=== PATIENT | male | born 1955 | race Caucasian/White ===

== ENCOUNTER → 2020-08-02 12:37 | Outpatient (CLI) | payer MEDICARE, OTHER, SELFPAY ==
[2020-08-02 13:25] LABS: Add Manual Diff / Slide Review NO; Basophils Absolute Auto 0 /uL (0-100); Basophils Percent Auto 0.3 % (0-2); Eosinophils Absolute Auto 200 /uL (0-450); Hemoglobin 14.8 g/dL (13.5-17.5); Lymphocytes Absolute Auto 2300 /uL (1100-4500); Lymphocytes Percent Auto 23.4 % (25-40); Mean Corpuscular HGB Conc 34.5 % (30-36); Mean Corpuscular Volume 89.9 fL (80-100); Monocytes Absolute Auto 800 /uL (0-900); Monocytes Percent Auto 7.9 % (3-14); Neutrophils Absolute Auto 6400 /uL (1500-7000); Neutrophils Percent Auto 66.4 % (50-75); Platelet Count 300 X10^3/uL (150-400); Red Blood Cell Count 4.78 X10^6/uL (4.5-5.9); Red Cell Distribution Width 13.6 % (11.6-14.8); White Blood Cell Count 9.6 X10^3/uL (4.5-11.0)
[2020-08-02 13:55] LABS: Alanine Aminotransferase 28 IU/L (<50); Albumin 4.4 g/dL (3.5-5.0); Albumin Globulin Ratio 1.3 (1.0-2.8); Alkaline Phosphatase 74 U/L (38-126); Aspartate Aminotransferase 29 IU/L (17-59); BUN Creatinine Ratio 19.1 (6-22); Bilirubin Total 0.5 mg/dL (0.2-1.3); Blood Urea Nitrogen 17 mg/dL (9-20); Calcium 9.4 mg/dL (8.4-10.2); Carbon Dioxide 28 mmol/L (22-32); Chloride 106 mmol/L (98-107); Estimated Glomerular Filt Rate > 60.0 mL/min (>60); Globulin 3.3 g/dL (1.7-4.1); Glucose 94 mg/dL (80-110); HEMOLYSIS < 15 (0-50); Potassium 4.5 mmol/L (3.4-5.1); Sodium 139 mmol/L (137-145); Total Protein 7.7 g/dL (6.3-8.2)
[2020-08-02 14:19] LABS: Prostate Specific Antigen Scrn 2.06 ng/mL (0.1-4.0)
== END ==
PROVIDERS: PCP Internal Medicine; Referring Provider Internal Medicine; Visit Provider Internal Medicine
DX: Z13.1 Encounter for screening for diabetes mellitus (principal); Z13.6 Encounter for screening for cardiovascular disorders; Z13.220 Encounter for screening for lipoid disorders; Z12.5 Encounter for screening for malignant neoplasm of prostate
CPT/HCPCS: 36415; 80053; 85025; G0103

== ENCOUNTER → 2021-05-30 09:33 | Outpatient (CLI) | payer MEDICARE, BC, SELFPAY ==
[2021-05-30 11:12] LABS: Add Manual Diff / Slide Review NO; Basophils Absolute Auto 0 /uL (0-100); Basophils Percent Auto 0.5 % (0-2); Eosinophils Absolute Auto 200 /uL (0-450); Eosinophils Percent Auto 2.2 % (2-4); Hematocrit 47.2 % (41-53); Hemoglobin 15.8 g/dL (13.5-17.5); Lymphocytes Absolute Auto 2200 /uL (1100-4500); Lymphocytes Percent Auto 21.4 % (25-40); Mean Corpuscular HGB Conc 33.4 % (30-36); Mean Corpuscular Hemoglobin 30.4 PG (26-34); Mean Corpuscular Volume 90.9 fL (80-100); Monocytes Absolute Auto 800 /uL (0-900); Monocytes Percent Auto 7.4 % (3-14); Neutrophils Absolute Auto 6900 /uL (1500-7000); Neutrophils Percent Auto 68.5 % (50-75); Platelet Count 278 X10^3/uL (150-400); Red Blood Cell Count 5.19 X10^6/uL (4.5-5.9); Red Cell Distribution Width 13.7 % (11.6-14.8); White Blood Cell Count 10.1 X10^3/uL (4.5-11.0)
[2021-05-30 11:28] LABS: Erythrocyte Sedimentation Rate 7 MM/HR (0-15)
[2021-05-30 12:59] LABS: Alanine Aminotransferase 26 IU/L (<50); Albumin 4.6 g/dL (3.5-5.0); Albumin Globulin Ratio 1.4 (1.0-2.8); Alkaline Phosphatase 71 U/L (38-126); Aspartate Aminotransferase 26 IU/L (17-59); BUN Creatinine Ratio 19.2 (6-22); Bilirubin Total 0.5 mg/dL (0.2-1.3); Blood Urea Nitrogen 20 mg/dL (9-20); C-Reactive Protein Quant 0.9 mg/dL (<1.0); Calcium 9.3 mg/dL (8.4-10.2); Carbon Dioxide 26 mmol/L (22-32); Chloride 107 mmol/L (98-107); Creatine Kinase 94 U/L (55-170); Estimated Glomerular Filt Rate > 60.0 mL/min (>60); Globulin 3.2 g/dL (1.7-4.1); Glucose 100 mg/dL (80-110); HEMOLYSIS < 15 (0-50); Potassium 4.4 mmol/L (3.4-5.1); Sodium 140 mmol/L (137-145); Total Protein 7.8 g/dL (6.3-8.2); Uric Acid 8.2 mg/dL (3.5-8.5)
[2021-05-30 13:10] LABS: TSH w/ Reflex to FT4 2.81 uIU/mL (0.47-4.68)
== END ==
PROVIDERS: PCP Internal Medicine; Referring Provider Internal Medicine; Visit Provider Internal Medicine
DX: I10 Essential (primary) hypertension (principal); M79.10 Myalgia, unspecified site; M10.9 Gout, unspecified
CPT/HCPCS: 36415; 80053; 82550; 84443; 84550; 85025; 85651; 86140

== ENCOUNTER → 2023-04-16 09:36 | Outpatient (CLI) | payer MEDICARE, BC, SELFPAY ==
[2023-04-16 11:31] LABS: Alanine Aminotransferase 25 IU/L (<50); Albumin 4.3 g/dL (3.5-5.0); Albumin Globulin Ratio 1.4 (1.0-2.8); Alkaline Phosphatase 64 U/L (38-126); Aspartate Aminotransferase 27 IU/L (17-59); BUN Creatinine Ratio 21.1 (6-22); Bilirubin Total 0.7 mg/dL (0.2-1.3); Blood Urea Nitrogen 19 mg/dL (9-20); Carbon Dioxide 25 mmol/L (22-32); Chloride 104 mmol/L (98-107); Cholesterol 249 mg/dL (140-199); Estimated Glomerular Filt Rate > 60 mL/min (>60); Globulin 3.1 g/dL (1.7-4.1); Glucose 99 mg/dL (80-110); HDL Cholesterol 36 mg/dL (40-60); HEMOLYSIS 17 (0-50); LDL Cholesterol Calculated 154 mg/dL (<100); Potassium 4.3 mmol/L (3.4-5.1); Sodium 136 mmol/L (137-145); Total Protein 7.4 g/dL (6.3-8.2); Triglycerides 295 mg/dL (35-150); Uric Acid 8.4 mg/dL (3.5-8.5)
[2023-04-16 11:57] LABS: Prostate Specific Antigen Scrn 3.22 ng/mL (0.1-4.0)
== END ==
PROVIDERS: PCP Internal Medicine; Referring Provider Internal Medicine; Visit Provider Internal Medicine
DX: I10 Essential (primary) hypertension (principal); Z12.5 Encounter for screening for malignant neoplasm of prostate; M10.9 Gout, unspecified
CPT/HCPCS: 36415; 80053; 80061; 84550; G0103

== ENCOUNTER → 2023-04-20 08:53 | Outpatient (CLI) | payer MEDICARE, BC, SELFPAY ==
--- NOTE | 2023-04-20 08:55 | DI.RAD.S_ITS ---
PROCEDURE: FL BARIUM SWALLOW INDICATIONS: dysphagia COMPARISON: None. FINDINGS: Function: There is mild esophageal dysmotility. No elicited gastroesophageal reflux. There is obstruction a calibrated barium tablet at the gastroesophageal junction. Morphology: Air-contrast images demonstrate normal mucosal morphology. There is short segment narrowing of the distal esophagus at esophageal strictures consistent with stricture. No extrinsic mass effects or diverticula. Small sliding hiatal hernia. Limited images of the stomach demonstrate normal appearance. IMPRESSION: 1. Short segment narrowing of the distal esophagus causing obstruction of the calibrated barium catheterization tablet. Recommend EGD for further evaluation. 2. Mild esophageal dysmotility. 3. Small sliding hiatal hernia. Dictated by: Suzie Gross M.D. on 04/20/2023 at 17:13 Approved by: Suzie Gross M.D. on 04/20/2023 at 20:39
== END ==
PROVIDERS: PCP Internal Medicine; Referring Provider Internal Medicine; Visit Provider Internal Medicine
DX: R13.10 Dysphagia, unspecified (principal); K22.4 Dyskinesia of esophagus; K44.9 Diaphragmatic hernia without obstruction or gangrene
CPT/HCPCS: 74220

== ENCOUNTER → 2023-05-28 15:05 | Outpatient (CLI) | payer MEDICARE, BC, SELFPAY ==
--- NOTE | 2023-05-28 15:08 | DI.RAD.S_ITS ---
PROCEDURE: XR WRIST LT MIN 3V INDICATIONS: distal ulna pain/tender/swelling reduce ROM wrist TECHNIQUE: 4 views of the wrist were acquired. COMPARISON: None. FINDINGS: Bones: No fractures or dislocations. No suspicious bony lesions. Osteoarthritic changes of the trace kv and 1st carpometacarpal joints. Scaphoid view: No acute fracture. Soft tissues: No suspicious soft tissue calcifications. IMPRESSION: No acute fractures or dislocations. Dictated by: Jaciel Suarez M.D. on 05/28/2023 at 15:50 Approved by: Jaciel Suarez M.D. on 05/28/2023 at 15:50
== END ==
PROVIDERS: PCP Internal Medicine; Referring Provider Student in an Organized Health Care Education/Training Program; Visit Provider Student in an Organized Health Care Education/Training Program
DX: S63.502A Unspecified sprain of left wrist, initial encounter (principal); X58.XXXA Exposure to other specified factors, initial encounter
CPT/HCPCS: 73110

== ENCOUNTER 2023-07-03 13:02 | Day surgery (SDC) | payer MEDICARE, OTHER, SELFPAY ==
[2023-07-03 13:27] VITALS: BP 152/93; PULSE 84; RESP 16; TEMP 36.5; O2SAT 98; BMI 27.3
[2023-07-03] MEDS: LACTATED RINGERS 1,000 ML 150 ML IV (13:40)
--- NOTE | 2023-07-03 13:59 | P.HP_ITS ---
History of Present Illness History of Present Illness Date Patient Seen: 07/03/23 Time Patient Seen: 13:59 Chief complaint: EGD/Colonoscopy Narrative: 68-year-old man with esophageal dysphagia here for diagnostic EGD and screening colonoscopy. No interval change in health. Please refer to the H and P from May 2023 for further detail. [facility] Medical History GERD without esophagitis Gout Erectile dysfunction Essential hypertension (~08/31/20) H/O adenomatous polyp of colon (~06/2018) Family history of Parkinson's disease Achilles tendinitis (~1997) Chronic back pain (~2019) MRSA (methicillin resistant Staphylococcus aureus) (~2012) Family history of colorectal cancer H/O renal calculi (~2014) Surgical History Anesthesia History of lithotripsy (~2015) S/P medial meniscal repair (~2012) History of eye surgery (~1958) S/P hernia surgery (~2012) S/P Achilles tendon repair S/P tonsillectomy and adenoidectomy Family History Mother Colon cancer Bedridden Father Parkinson's disease Stroke Grandfather Cancer Grandmother Diabetes mellitus Grandmother Cancer Social History household members: spouse Smoking Status: Former smoker alcohol intake: current Meds Home Medications and Allergies Home Medications Medication Instructions Recorded Confirmed Type omeprazole 40 mg capsule,delayed 40 mg PO BID #180 caps 05/18/23 07/03/23 Rx release rosuvastatin 10 mg tablet 10 mg PO DAILY #90 tabs 05/18/23 07/03/23 Rx peg 3350-electrolytes 236 240 ml PO Q10M #4,000 mL 06/07/23 07/03/23 Rx gram-22.74 gram-6.74 gram-5.86 gram solution (Golytely) Allergies Allergy/AdvReac Type Severity Reaction Status Date / Time No Known Drug Allergies Allergy Verified 05/31/23 09:32 Exam Vital Signs (past 8 hours): - 07/03/23 13:27 Temperature 97.7 F Pulse Rate 84 Respiratory Rate 16 Blood Pressure 152/93 H Pulse Oximetry 98 Oxygen Delivery Method Room Air Oxygen Delivery Method Room Air Narrative Exam Narrative: General adult man alert oriented no acute distress Chest nonlabored respiration Extremities warm well perfused Assessment & Plan Assessment and plan (1) Stricture of esophagus: Status: Acute Assessment & Plan narrative: 68-year-old man with esophageal dysphagia secondary to stricture here for diagnostic esophagoduodenoscopy and screening colonoscopy. Technical details were discussed. Risks, benefits, alternatives explained. Risks including but not limited to myocardial infarction, aspiration, bleeding, pain, missed lesion, incomplete examination, need for further radiographic studies, intestinal injury, and need for major abdominal surgery were discussed. All questions were answered to their satisfaction, and they are in agreement with this plan.
[2023-07-03 14:35] VITALS: BP 96/62; PULSE 67; RESP 14; TEMP 36.4; O2SAT 97
--- NOTE | 2023-07-03 14:35 | PM.OP.EC ---
Operative Date/Time/Diagnoses Date of procedure: 07/03/23 Time of procedure: 14:35 Pre-op diagnosis: Esophageal stricture, family history of colon cancer Post-op diagnosis: same Procedure & Clinicians Study performed: Esophagoduodenoscopy with dilation Screening colonoscopy Same procedure as scheduled: Yes Indications: 68-year-old man with esophageal dysphagia and esophageal stricture here for diagnostic esophagoduodenoscopy and colonoscopy Surgeon: Devin Mckeon Procedure Notes Procedure in detail: The history and physical was performed/updated and the patient is ASA class is 2. The procedure was discussed in detail with the patient. Potential risks complications including infection, bleeding, missed diagnosis, perforation, need for surgery, and were explained. Their questions were answered and informed consent was obtained. Patient placed in left lateral decubitus position. Time out was performed. Procedural sedation was administered by Anesthesia. A bite block was placed. the scope was inserted into the mouth and advanced through the esophagus and into the stomach. There was a ring of scar tissue at the distal esophagus but the scope could pass through this. The stomach was without masses, ulcers or gastritis. The pylorus was intubated and the duodenum was normal to the 2nd portion. The scope was retroflexed within the stomach and there was a small hiatal hernia. The scope was withdrawn into the esophagus the Z line was seen at 35 cm from the incisions. The distal esophageal stricture was slowly and under direct visualization dilated to 20 mm. Stomach was desufflated and scope removed. Examination began with a thorough inspection of the perianal area there was no evidence of fissures, fistulae, external hemorrhoids or cutaneous malignancy. The colonoscopy scope was then placed into the anal canal and was advanced to the cecum, which was identified by the ileocecal valve, the appendiceal orifice and the confluence of the taenia. The scope was then slowly withdrawn examining colon thoroughly in all directions, irrigating it of any residual stool. The patient tolerated the procedure well. They will be discharged once criteria are met. The prep was of good/excellent quality. The withdrawl time was 7 minutes. Findings -Distal esophageal stricture -sigmoid diverticulosis Specimen(s): none sent Impression: Esophageal stricture Post-procedure Plan for aftercare: Repeat colonoscopy 5 years secondary to family history Disposition: same day surgery
[2023-07-03 14:40] VITALS: BP 98/64; PULSE 68; RESP 14; O2SAT 96
[2023-07-03 14:45] VITALS: BP 107/68; PULSE 60; RESP 12; TEMP 36.3; O2SAT 98
[2023-07-03 14:53] VITALS: BP 109/72; PULSE 80; RESP 18; O2SAT 97
== END 2023-07-03 15:10 | disposition home or self-care (01) ==
PROVIDERS: PCP Internal Medicine; Referring Provider Surgery; Visit Provider Surgery
PROC: 0DJ08ZZ Inspection of Upper Intestinal Tract, Via Natural or Artificial Opening Endoscopic (ICD-10-PCS; CPT 43235; principal; 2023-07-03 14:30)
PROC: 0DJD8ZZ Inspection of Lower Intestinal Tract, Via Natural or Artificial Opening Endoscopic (ICD-10-PCS; CPT 45378; 2023-07-03 14:30)
DX: Z12.11 Encounter for screening for malignant neoplasm of colon (principal); Z80.0 Family history of malignant neoplasm of digestive organs; K22.2 Esophageal obstruction; K44.9 Diaphragmatic hernia without obstruction or gangrene; K57.30 Diverticulosis of large intestine without perforation or abscess without bleeding
CPT/HCPCS: 43249; G0105; J2704

== ENCOUNTER → 2024-11-20 11:49 | Outpatient (CLI) | payer MEDICARE, OTHER, SELFPAY ==
[2024-11-20 12:33] LABS: Influenza A - CEPHEID Flu A NEGATIVE (NEGATIVE); Influenza B - CEPHEID Flu B NEGATIVE (NEGATIVE); Respiratory Syncytial Virus Negative (Negative)
[2024-11-20 12:59] LABS: COVID-19 CEPHEID 4-PLEX PCR Negative (Negative)
== END ==
PROVIDERS: PCP Internal Medicine; Visit Provider Physician Assistant
DX: R05.1 Acute cough (principal)
CPT/HCPCS: 0241U

== ENCOUNTER → 2024-11-28 08:46 | Outpatient (CLI) | payer MEDICARE, OTHER, SELFPAY ==
[2024-11-28 10:08] LABS: Add Manual Diff / Slide Review NO; Basophils Absolute Auto 100 /uL (0-100); Basophils Percent Auto 0.5 % (0-2); Eosinophils Absolute Auto 200 /uL (0-450); Eosinophils Percent Auto 1.5 % (2-4); Hematocrit 41.6 % (41-53); Hemoglobin 14.1 g/dL (13.5-17.5); Lymphocytes Absolute Auto 1900 /uL (1100-4500); Lymphocytes Percent Auto 12.2 % (25-40); Mean Corpuscular HGB Conc 33.9 % (30-36); Mean Corpuscular Hemoglobin 30.2 PG (26-34); Mean Corpuscular Volume 89.2 fL (80-100); Monocytes Absolute Auto 800 /uL (0-900); Neutrophils Absolute Auto 12400 /uL (1500-7000); Neutrophils Percent Auto 80.8 % (50-75); Platelet Count 409 X10^3/uL (150-400); Red Blood Cell Count 4.66 X10^6/uL (4.5-5.9); Red Cell Distribution Width 14.3 % (11.6-14.8); White Blood Cell Count 15.3 X10^3/uL (4.5-11.0)
[2024-11-28 10:37] LABS: Alanine Aminotransferase 24 IU/L (<50); Albumin Globulin Ratio 1.4 (1.0-2.8); Alkaline Phosphatase 79 U/L (38-126); Aspartate Aminotransferase 25 IU/L (17-59); BUN Creatinine Ratio 16.7 (6-22); Bilirubin Total 0.6 mg/dL (0.2-1.3); Blood Urea Nitrogen 17 mg/dL (9-20); Calcium 9.5 mg/dL (8.4-10.2); Carbon Dioxide 27 mmol/L (22-32); Chloride 103 mmol/L (98-107); Cholesterol 162 mg/dL (140-199); Estimated Glomerular Filt Rate > 60 mL/min (>60); Globulin 2.8 g/dL (1.7-4.1); Glucose 103 mg/dL (80-110); HDL Cholesterol 29 mg/dL (40-60); HEMOLYSIS < 15 (0-50); LDL Cholesterol Calculated 95 mg/dL (<100); Potassium 4.8 mmol/L (3.4-5.1); Sodium 139 mmol/L (137-145); Total Protein 6.8 g/dL (6.3-8.2); Triglycerides 190 mg/dL (35-150); Uric Acid 6.3 mg/dL (3.5-8.5)
[2024-11-28 11:07] LABS: Prostate Specific Antigen Scrn 2.87 ng/mL (0.1-4.0)
[2024-11-28 11:10] LABS: TSH w/ Reflex to FT4 1.98 uIU/mL (0.47-4.68)
== END ==
PROVIDERS: PCP Internal Medicine; Referring Provider Internal Medicine; Visit Provider Internal Medicine
DX: I10 Essential (primary) hypertension (principal); Z12.5 Encounter for screening for malignant neoplasm of prostate; M10.9 Gout, unspecified; D64.9 Anemia, unspecified; E78.5 Hyperlipidemia, unspecified
CPT/HCPCS: 36415; 80053; 80061; 84443; 84550; 85025; G0103

== ENCOUNTER → 2024-12-22 11:58 | Outpatient (CLI) | payer MEDICARE, OTHER, SELFPAY | PROVIDERS: PCP Internal Medicine; Visit Provider Internal Medicine | DX: L72.0 Epidermal cyst (principal) | CPT/HCPCS: 87070; 87075; 87205 ==